=== PATIENT | male | born 1980 | race Caucasian/White ===

== ENCOUNTER 2020-10-03 00:22 | Emergency (ER) | payer BC, SELFPAY ==
--- NOTE | ~2020-10-03 | XR_ITS ---
EXAMINATION: ELBOW 3 VIEWS, RIGHT CLINICAL INFORMATION: Right elbow pain. Swelling. COMPARISON: None. TECHNIQUE: AP, lateral, oblique views of the right elbow are provided. FINDINGS: There are no fractures or dislocations. There is no elbow joint effusion. XR/XR elbow RT min 3V IMPRESSION: Unremarkable right elbow radiographs.
[2020-10-03 00:34] VITALS: BP 129/68; PULSE 66; RESP 16; TEMP 36.8; O2SAT 97; BMI 28.5
--- NOTE | 2020-10-03 01:42 | PC.NURSE ---
pt ambulated to [facility] with steady gait. right arm pain and swelling that pt woke up with from a sleep on the couch
--- NOTE | 2020-10-03 02:02 | ED_ITS ---
HPI - General Adult General Chief complaint: Extremity Problem Stated complaint: Elbow swelling Time Seen by Provider: 10/03/20 02:01 Source: patient Mode of arrival: ambulatory Limitations: no limitations History of Present Illness HPI narrative: 39-year-old male with a history of DVT on Coumadin, patient started to have right elbow pain, patient reported no trauma or injury to the right elbow, patient was at the gym today exercising with upper extremities free weight but declined any pain then or trauma to the right elbow. Related Data Allergies Allergy/AdvReac Type Severity Reaction Status Date / Time ibuprofen [IBUPROFEN] Allergy Unknown SHORTNESS Verified 10/03/20 00:34 OF BREATH Penicillins [PCN] Allergy Unknown UNKNOWN Verified 10/03/20 00:34 Review of Systems Review of Systems: All other systems are reviewed and are negative Constitutional: Reports as per HPI and Reports no additional constitutional complaints Eyes: Reports as per HPI and Reports no additional eye complaints Reports system reviewed and no additional complaints, except as documented Cardiovascular: Reports as per HPI and Reports no additional cardiovascular complaints Respiratory: Reports as per HPI and Reports no additional respiratory complaints Gastrointestinal: Reports as per HPI and Reports no additional gastrointestinal complaints Genitourinary: Reports no additional female genitourinary complaints Musculoskeletal: Reports no additional musculoskeletal complaints Skin/Breast: Reports system reviewed and no additional complaints, except as docu Psychiatric: Reports no additional psychiatric complaints Endocrine: Reports no additional endocrine complaints Hematologic/Lymphatic: Reports no additional hematologic/lymphatic complaints Allergic/Immunologic: Reports no additional allergic/immunologic complaints Reports system reviewed and no additional complaints, except as documented and Reports Abnormal speech present [facility] Past Medical History Medical History Ankle fracture, right DVT (deep venous thrombosis) Social History Social History Advance Directives: No Advance Directives Information Provided: No Physical Exam Vital Signs: Vital Signs: Last Vital Signs Temp 98.3 F 10/03/20 00:34 Pulse 66 10/03/20 00:34 Resp 16 10/03/20 00:34 BP 129/68 10/03/20 00:34 Pulse Ox 97 10/03/20 00:34 Body Mass Index 28.5 Vital signs have been reviewed as normal and appeared to be correct. Blood pressure normal. Heart rate normal. Respiration rate normal. Temperature normal. Oxygen saturation normal. Appearance: Alert. Oriented X3. No acute distress. Head: Normal external exam. Normocephalic. Atraumatic. No Mcnair signs noted. N o raccoon eyes noted Eyes: PERRLA. EOMI. Conjunctiva and sclera normal. Eyelids normal. ENT: EAC normal. TM's Normal. Pharynx normal. Uvula midline. Moist mucous membranes. No trismus noted. No drooling noted. No muffled voice noted. Neck: Normal inspection. Neck supple. FROM. No adenopathy. Thyroid Normal. No meningeal signs. No neck mass noted. CVS: Normal heart rate and rhythm. Heart sound normal. No murmurs noted. Pulses normal throughout. Respiratory: No respiratory distress. Painless inspiration. Breath sounds normal. No wheezes/rales/rhonchi noted. Chest nontender. No accessory muscle usage noted or decreased air movement noted. Abdomen: Soft and nontender. Bowel sounds normal in all 4 quadrants. No distention noted. No organomegaly noted. No visible injury noted. Back: No CVA tenderness. Full range of motion noted. Skin: Skin warm and dry. Normal skin color. Normal skin turgor. No rashes/lesions/lacerations noted. Extremities: Right elbow no deformity, tender but full range of motion, no swelling, no redness, mild hotness. Neuro: Oriented X 3. No motor deficit. No sensory deficit. Reflexes normal. Course Course Course Narrative: Assessment and plan. 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 Presented with right elbow pain after been exercising at the gym. X-ray is not suggestive for fracture or intra-articular bleed or swelling, normal white count, normal sed rate, and normal CRP. Intra-articular infection is extremely unlikely with this normal values. Patient was instructed to elevate and use ice. Medical Decision Making Lab Data Lab results reviewed: Yes I reviewed the patient's lab results. Result diagrams: 10/03/20 02:32 Labs: Lab Results 10/03/20 10/03/20 10/03/20 Range/Units 02:32 02:32 02:32 WBC 9.8 (4.8-10.8) X10*3/uL RBC 4.82 (4.60-5.80) X10*6/uL Hgb 14.7 (14.0-18.0) g/dl Hct 42.4 (42-52) % MCV 88.0 (80-98) fL MCH 30.5 (27.0-33.0) pg MCHC 34.7 (31.0-36.0) g/dl RDW 13.2 (11.0-16.0) % Plt Count 204 (160-400) X10*3/uL MPV 9.6 (9.4-12.4) fL Immature Gran % (Auto) 0.2 (0.0-0.4) % Neut % (Auto) 68.6 (45-73) % Lymph % (Auto) 19.0 L (20-40) % [place] % (Auto) 7.4 (2-11) % Eos % (Auto) 4.3 H (0-4) % Baso % (Auto) 0.5 (0-2) % Lymph # (Auto) 1.9 (1.2-4.9) X10*3/uL [place] # (Auto) 0.7 (0.1-1.2) X10*3/uL Eos # (Auto) 0.4 (0.0-0.4) X10*3/uL Baso # (Auto) 0.1 (0.0-0.2) X10*3/uL Abs Immat Gran (auto) 0.02 (0.00-0.03) X10*3/uL Absolute Neuts (auto) 6.7 (2.0-8.3) X10*3/uL Absolute Nucleated RBC 0.000 (0.0-0.012) X10*3/uL Nucleated RBC % (auto) 0.0 (0.0-0.2) /100WBC ESR 1 (0-15) MM/HR Lactic Acid 0.9 (0.5-2.0) mmol/L C-Reactive Protein (< or = 0.50) mg/dL 10/03/20 Range/Units 02:32 WBC (4.8-10.8) X10*3/uL RBC (4.60-5.80) X10*6/uL Hgb (14.0-18.0) g/dl Hct (42-52) % MCV (80-98) fL MCH (27.0-33.0) pg MCHC (31.0-36.0) g/dl RDW (11.0-16.0) % Plt Count (160-400) X10*3/uL MPV (9.4-12.4) fL Immature Gran % (Auto) (0.0-0.4) % Neut % (Auto) (45-73) % Lymph % (Auto) (20-40) % [place] % (Auto) (2-11) % Eos % (Auto) (0-4) % Baso % (Auto) (0-2) % Lymph # (Auto) (1.2-4.9) X10*3/uL [place] # (Auto) (0.1-1.2) X10*3/uL Eos # (Auto) (0.0-0.4) X10*3/uL Baso # (Auto) (0.0-0.2) X10*3/uL Abs Immat Gran (auto) (0.00-0.03) X10*3/uL Absolute Neuts (auto) (2.0-8.3) X10*3/uL Absolute Nucleated RBC (0.0-0.012) X10*3/uL Nucleated RBC % (auto) (0.0-0.2) /100WBC ESR (0-15) MM/HR Lactic Acid (0.5-2.0) mmol/L C-Reactive Protein 0.07 (< or = 0.50) mg/dL Imaging Data Right elbow x-ray: Radiologist's impression: Unremarkable right elbow radiographs. Discharge Plan Discharge Clinical Impression: Arthralgia Qualifiers: Joint pain location: elbow Laterality: right Qualified Code(s): M25.521 - Pain in right elbow Patient Disposition: Home, Self-Care Instructions: Arthralgia (ED) Additional Instructions: Elevate the right upper extremities, apply ice to the right elbow. Referrals: Sandro Tyler MD [Primary Care Provider] - 2 days
[2020-10-03 02:37] LABS: Basophils Absolute Auto 0.1 X10*3/uL (0.0-0.2); Basophils Percent Auto 0.5 % (0-2); Eosinophils Absolute Auto 0.4 X10*3/uL (0.0-0.4); Eosinophils Percent Auto 4.3 % (0-4); Hematocrit 42.4 % (42-52); Hemoglobin 14.7 g/dl (14.0-18.0); Imm Gran Abs Auto 0.02 X10*3/uL (0.00-0.03); Imm Gran Pct Auto 0.2 % (0.0-0.4); Lymphocytes Absolute Auto 1.9 X10*3/uL (1.2-4.9); Mean Corpuscular HGB Conc 34.7 g/dl (31.0-36.0); Mean Corpuscular Hemoglobin 30.5 pg (27.0-33.0); Mean Platelet Volume 9.6 fL (9.4-12.4); Monocytes Absolute Auto 0.7 X10*3/uL (0.1-1.2); Monocytes Percent Auto 7.4 % (2-11); Neutrophils Absolute Auto 6.7 X10*3/uL (2.0-8.3); Neutrophils Percent Auto 68.6 % (45-73); Platelet Count 204 X10*3/uL (160-400); Red Blood Count 4.82 X10*6/uL (4.60-5.80); Red Cell Distribution Width 13.2 % (11.0-16.0); White Blood Count 9.8 X10*3/uL (4.8-10.8)
[2020-10-03 02:38] LABS: MANUAL DIFF FLAG NO
[2020-10-03 02:53] LABS: Lactic Acid 0.9 mmol/L (0.5-2.0)
[2020-10-03 03:04] LABS: C Reactive Protein 0.07 mg/dL (< or = 0.50)
[2020-10-03 03:13] LABS: Erythrocyte Sedimentation Rate 1 MM/HR (0-15)
[2020-10-03 03:48] VITALS: BP 97/53; PULSE 64; RESP 18; O2SAT 96
[2020-10-03 03:49] VITALS: BP 98/61
== END 2020-10-03 03:52 | disposition home or self-care (01) ==
PROVIDERS: Emergency Provider Emergency Medicine; PCP Internal Medicine
DX: M25.521 Pain in right elbow (principal); Z86.718 Personal history of other venous thrombosis and embolism
CPT/HCPCS: 36415; 73080; 83605; 85025; 85652; 86140; 99283; 99284

== ENCOUNTER 2020-12-27 16:18 | Emergency (ER) | payer BC, SELFPAY ==
[2020-12-27 16:31] VITALS: BP 107/64; PULSE 60; RESP 14; TEMP 36.5; O2SAT 96; BMI 28.5
[2020-12-27] MEDS: Fluorescein Sodium STRIP 1 STRIP EYE-LEFT (17:02)
[2020-12-27] MEDS: Tetracaine HCl/PF 0.5% Oph Sol 4 ML DROPS 1 DROP EYE-LEFT (17:02)
--- NOTE | 2020-12-27 17:21 | ED.EYEPROB ---
HPI - Eye Problem General Chief complaint: Eye Problems Stated complaint: eye issue Time Seen by Provider: 12/27/20 16:40 Source: patient Mode of arrival: ambulatory Limitations: no limitations History of Present Illness HPI Narrative: 40 y/o male presenting with a red, itchy left eye that started today on his way home from work. He initially felt like he got something in his eye so he rubbed and scratched at it. When he got home from work he noticed the white part of his eye was swollen and puffy. He feels like there is a dried contact lens on his eye. He no longer wears contacts, got LASIK 10 years ago. No vision changes. No discharge but increased watering. chief complaint: eye pain, eye redness and foreign body Onset (ago): hour(s) (2) Onset description: sudden Duration: improved Location: left eye Eye Symptoms: burning, redness and foreign body sensation Place: other (in his truck) Severity: moderate If Pain, Quality: burning and aching Associated symptoms: none Treatments Prior to Arrival: none Related Data Patient tetanus UTD: Yes Previous Rx's Medication Instructions Recorded tobramycin-dexamethasone [TobraDex] 2 drp OPHTHALMIC-LEFT QID #5 ml 12/27/20 Allergies Allergy/AdvReac Type Severity Reaction Status Date / Time ibuprofen [IBUPROFEN] Allergy Unknown SHORTNESS Verified 10/03/20 00:34 OF BREATH Penicillins [PCN] Allergy Unknown UNKNOWN Verified 10/03/20 00:34 Seasonal Allergies Allergy Itchy Eyes Verified 12/27/20 16:31 Review of Systems Review of Systems: Constitutional: No Fever, No Chills ENT/Mouth: No sore throat, No Rhinorrhea, No Swallowing Difficulty Eyes: + Eye Pain, + Swelling, + Redness Cardiovascular: No Chest Pain, No SOB Respiratory: No Cough G PMFSH Past Medical History Attestation statement: The following information was validated with the patient. Medical History Ankle fracture, right DVT (deep venous thrombosis) Social History Social History Advance Directives: No Advance Directives Information Provided: No Physical Exam Vital Signs: Vital Signs: Last Vital Signs Temp 97.7 F 12/27/20 16:31 Pulse 60 12/27/20 16:31 Resp 14 12/27/20 16:31 BP 107/64 12/27/20 16:31 Pulse Ox 96 12/27/20 16:31 Body Mass Index 28.5 Appearance: Alert. Oriented X3. No acute distress. HEENT: left eye with lateral sceral edema and injection, no fluroscene uptake, VA 20/20. no discharge. CVS: Normal heart rate and rhythm. Pulses normal. Respiratory: No respiratory distress. Skin: Skin warm and dry. Normal skin color. Normal skin turgor. No rashes. Extremities: atraumatic, no edema Neuro: Oriented X 3. No motor deficit. No sensory deficit. Course Course Course Narrative: 40 y/o male presenting with irritation and redness of left eye after rubbing it. Exam is consistent with chemosis without abrasion. Will treat with topical Tobradex for inflammation and to prevent infection. Will refer to Dr. Valentino if no improvement in 48 hours. Patient agrees with plan. Stable for d/c. Discharge Plan Discharge Clinical Impression: Chemosis of left conjunctiva Patient Disposition: Home, Self-Care Instructions: Conjunctivitis (ED) Additional Instructions: Your exam today was consistent with chemosis a collection of serous fluid within the substance of the conjunctiva and is a nonspecific sign of conjunctival irritation Recommend using prescribed eye drops to help with inflammation Follow up with the eye doctor if no improvement in 48 hours Come back to the ER if you have worsening symptoms or vision changes Prescriptions: New tobramycin-dexamethasone [TobraDex] 0.3-0.1 % drops,suspension 2 drp ophthalmic-Left QID Qty: 5 RF: 0 Referrals: Oskar Valentino [Physician] - 2 days (chemosis) Interventions: ED Discharge Assessment Last Done: 12/27/20 17:35 Discharge Date/Time: 12/27/20 17:36
--- NOTE | 2020-12-27 17:28 | PC.NURSE ---
EYE STAINED AND EXAMINED BY PROVIDER. SCLERA EDEMA NOTED. NO ABRASION.
== END 2020-12-27 17:36 | disposition home or self-care (01) ==
PROVIDERS: Emergency Provider Internal Medicine; PCP Internal Medicine
DX: H11.422 Conjunctival edema, left eye (principal); H57.12 Ocular pain, left eye
CPT/HCPCS: 99283